=== PATIENT | female | born 1970 | race Caucasian/White ===

== ENCOUNTER 2024-01-16 09:14 | Emergency (ER) | payer OTHER ==
[~2024-01-16] VITALS: Ht 160 cm; Wt 70.0 kg
[2024-01-16 09:17] VITALS: BP 139/85; PULSE 90; RESP 16; TEMP 98.3; O2SAT 99
[2024-01-16] MEDS ORDERED: TETANUS, DIPHTHERIA, PERTUSSIS VAC/PF 0.5ML (>10YR OLD) IM ONE ×2 (09:45→13:00)
[2024-01-16] MEDS ORDERED: ACETAMINOPHEN 325MG TABLET PO ONE (09:45)
[2024-01-16] MEDS: LIDOCAINE HCL 1% 20ML VIAL INFIL ONE (12:05)
[2024-01-16] MEDS ORDERED: ACETAMINOPHEN 325MG TABLET PO SCH (13:00)
== END 2024-01-16 13:08 | disposition home or self-care (01) ==
LOC: ER 09:14
DX: S06.330A Contusion and laceration of cerebrum, unspecified, without loss of consciousness, initial encounter (principal); S01.81XA Laceration without foreign body of other part of head, initial encounter; Z90.49 Acquired absence of other specified parts of digestive tract; W25.XXXA Contact with sharp glass, initial encounter; Y93.89 Activity, other specified; Y92.89 Other specified places as the place of occurrence of the external cause; Y99.8 Other external cause status
CPT/HCPCS: 70450; 72125; 90715; 12011; 90471; 99284; J3490; Z7610 ×2